=== PATIENT | female | born 1975 | race Caucasian/White ===

== ENCOUNTER 2021-03-29 05:00 | Inpatient (IN) | payer MEDICAID, SELFPAY ==
[~2021-03-29] VITALS: Ht 157.5 cm; Wt 76.7 kg
[2021-03-29 05:06] VITALS: BP 131/44
--- NOTE | 2021-03-29 05:45 | NUR ---
45 Y/O FEMALE CAME TO THE ED FOR PROCEDURE WITH DR. PANTOJA. PER PT, DR. ARAUJO STATED "I NEED TO BE HERE BEFORE 5AM". PT STATES THAT PROCEDURE IS FOR HER PAST ABNORMAL UTERINE BLEEDING. DENIES N/V/D; SKIN IS PINK/WARM/DRY; AAOX4 WITH EVEN AND STEADY GAIT; LUNGS CLEAR BL; HR EVEN AND REGULAR; PT DENIES ANY FEVER, CP, SOB, OR COUGH AT THIS TIME; PATIENT STATES PAIN OF 0/10 AT THIS TIME; VSS; PATIENT POSITIONED FOR COMFORT; HOB ELEVATED; BEDRAILS UP X2; BED DOWN. ER MD MADE AWARE OF PT STATUS. NKA PMH: BLOOD CLOTS
--- NOTE | 2021-03-29 05:47 | NUR ---
COLLECTED DARLING SWAB, HANDED TO LORI, CPT
--- NOTE | 2021-03-29 05:50 | NUR ---
ekg performed at bedside. ekg reads sinus rhythm @ 72
[2021-03-29 05:56] LABS: BASOPHILS % (AUTO) 0.4 % (0.0-2.0); EOSINOPHILS # (AUTO) 0.3 K/uL (0-0.4); EOSINOPHILS % (AUTO) 2.9 % (0.0-4.0); HEMATOCRIT 22.2 % (36-48); LYMPHOCYTES % (AUTO) 34.6 % (20.5-51.1); MEAN CORPUSCULAR HEMOGLOBIN 26 pg (27-31); MEAN CORPUSCULAR HGB CONC 32 g/dL (33-37); MEAN CORPUSCULAR VOLUME 81.1 fL (80-94); MONOCYTES # (AUTO) 0.8 K/uL (0.8-1.0); MONOCYTES % (AUTO) 9.1 % (1.7-9.3); NEUTROPHILS # (AUTO) 4.6 K/uL (1.8-7.7); PLATELET COUNT (AUTO) 469 K/uL (140-450); RED BLOOD CELL COUNT(AUTO) 2.74 MIL/uL (4.20-5.40); RED CELL DISTRIBUTION WIDTH 20.1 % (11.6-13.7); WHITE BLOOD COUNT (AUTO) 8.7 K/uL (4.8-10.8)
[2021-03-29 06:10] LABS: ALBUMIN 3.1 g/dL (3.4-5.0); ANION GAP 12.8 (8-16); CARBON DIOXIDE 22.9 mmol/L (21-32); CREATININE 0.6 mg/dL (0.6-1.3); POTASSIUM 3.7 mmol/L (3.5-5.1); TOTAL BILIRUBIN 0.3 mg/dL (0.0-1.0)
[2021-03-29] MEDS ORDERED: MEGE40TA17 PO (06:29)
[2021-03-29] MEDS ORDERED: RIVA20TA PO (06:29)
[2021-03-29] MEDS ORDERED: ONDANSETRON 4 MG/2 ML VIAL IM/IVP PRN (07:00)
[2021-03-29] MEDS: NACL 0.9% 1,000 ML IV SCH ×2 (07:00→23:40)
[2021-03-29] MEDS ORDERED: DOCUSATE SODIUM 100 MG GELCAP PO PRN (07:00)
[2021-03-29] MEDS ORDERED: ACETAMINOPHEN 325 MG TAB PO PRN (07:00)
--- NOTE | 2021-03-29 07:47 | NUR ---
REPORT GIVEN TO LANE JOSE AT THIS TIME.
--- NOTE | 2021-03-29 07:57 | NUR ---
Patient will be admitted to care of DR MIGUEL. Admited to MED SURG. Will go to room 119B. Belongings list completed. Report to LANE JOSE.
[2021-03-29] MEDS ORDERED: ONDANSETRON 4 MG/2 ML VIAL ONE ×2 (07:58→09:44)
[2021-03-29] MEDS ORDERED: LIDOCAINE 2% 100 MG/5 ML SYR IVP ONE ×2 (07:58→09:44)
[2021-03-29] MEDS ORDERED: METOCLOPRAMIDE 10 MG/2 ML INJ VIAL ONE ×2 (07:58→09:44)
[2021-03-29] MEDS ORDERED: DEXAMETHASONE 4 MG/ML VIAL ONE ×2 (07:58→09:44)
[2021-03-29] MEDS ORDERED: MIDAZOLAM 2 MG/2 ML VIAL ONE (07:58)
[2021-03-29] MEDS ORDERED: fentaNYL citrate 0.05 MG/ML VIAL ONE ×2 (07:58→09:44)
--- NOTE | 2021-03-29 08:00 | NUR ---
PT ARRIVED FROM ED DEPT. VIA WHEELCHAIR. A/OX4 [place] SPEAKING PT. RA. LUNGS CLEAR, ABD SOFT, TENDER. GUARDING. S1S2. SKIN INTACT, NORMAL FOR SKIN ETHNICITY. R. HAND 22G. PT CAN AMBULATE, STATES HAS PAIN 8/10 ON PELVIC REGION, NO UTERINE BLEEDING AT THIS TIME PER PT. WILL CONTINUE TO MONITOR. NO SIGN OF APPARENT DISTRESS. PT CAN MAKE NEEDS KNOWN.
--- NOTE | 2021-03-29 08:10 | NUR ---
OBTAINED L/R NARE SPECIMEN FOR MRSA, PT TOLERATED PROCEDURE WELL. SENT SPECIMEN TO LAB FOR PROCESSING
--- NOTE | 2021-03-29 09:20 | NUR ---
PT TAKEN TO O.R. FOR PROCEDURE, PER OR NURSE, PHYSICIAN CALLED IN FOR PROCEDURE AND ARRANGED HIMSELF. PT REMOVED TWO PAIR OF EARRINGS AND PLACE IN PURSE ALONG WITH CELLPHONE, I LEFT MESSAGE FOR TO NOTIFY OF PT TRANSFER TO OR.
[2021-03-29] MEDS ORDERED: ceFAZolin 1,000 MG VIAL ONE (09:31)
--- NOTE | 2021-03-29 09:40 | NUR ---
SPOKE TO RE: TRANSFER OF PT TO OR. HE WILL CALL AFTER 12:00PM TO CHECK ON PT STATUS
[2021-03-29] MEDS ORDERED: SUCCINYLCHOLINE CHLORIDE 200 MG/10 ML VIAL IVP ONE (09:44)
[2021-03-29] MEDS ORDERED: SEVOFLURANE 250 ML BTL INH ONE (09:44)
[2021-03-29] MEDS ORDERED: ROCURONIUM 50 MG/5 ML VIAL IV ONE (09:44)
[2021-03-29] MEDS ORDERED: PROPOFOL 200 MG/20 ML VIAL IV ONE (09:44)
[2021-03-29] MEDS ORDERED: ETOMIDATE 20 MG/10 ML VIAL IVP ONE (09:44)
[2021-03-29] MEDS: LACTATED RINGERS 1,000 ML IV SCH ×3 (10:15→23:47)
[2021-03-29] MEDS ORDERED: ONDANSETRON 4 MG/2 ML VIAL IVP PRN (10:15)
[2021-03-29] MEDS ORDERED: MEPERIDINE 25 MG/ML SYR IVP PRN (10:15)
[2021-03-29] MEDS ORDERED: diphenhydrAMINE 50 MG/ML VIAL IVP PRN (10:15)
[2021-03-29] MEDS: fentaNYL citrate 0.05 MG/ML VIAL IVP PRN ×2 (11:09→11:19)
--- NOTE | 2021-03-29 11:46 | NUR ---
PT RETURNED FROM OR. STABLE, NO SIGN OF DISTRESS, STATES PAIN 2/10, NO NEED TO MEDICATE PER PT. PT HAD HYSTEROSCOPY WITH D&C, UTERINE ABLATION. RA. WILL CONTINUE TO MONITOR VITALS. BED LOWEST POSITION.
--- NOTE | 2021-03-29 12:14 | NUR ---
DC PLANNIN YRS OLD FEMALE PATIENT WAS ADMITTED FROM HOME WITH A DX OF DYSFUNCTIONAL UTERINE BLEEDING, ANEMIA. PT HAS A HX OF MENORRHAGIA, DVT AND PE ON XARELTO. CXR SHOWED NO ACUTE CARDIOPULMONARY DISEASE. RAPID COVID TEST NEGATIVE. CONTINUOUS PILLOWCASE CUTTER DR MIGUEL PERFORMED HYSTEROSCOPY ,ENDOMETRIAL DILATION &CURETTAGE W ENDOMETRIAL ABLATION. ADMINISTERED IVF, IV ABX ANCEF AND CONTINUED HOME MEDS. DC PLAN TO GO HOME WHEN STABLE.
--- NOTE | 2021-03-29 13:30 | NUR ---
PT STABLE, DENIES ANY VAGINAL BLEEDING AT THIS TIME, STATES PAIN IS TOLERABLE
--- NOTE | 2021-03-29 14:45 | NUR ---
PT IV BECAME INFILTRATED, NO PATENT, REMOVE IV CATHETER, INTACT. REPLACED ON R. FOREARM 20 G, TWO ATTEMPTS WERE MADE ,PT TOLERATED PROCEDURE WELL
--- NOTE | 2021-03-29 15:34 | NUR ---
RECEIVED FNS REFERRAL FOR NAUSEA >3 DAYS. PATIENT HAS BEEN SCREENED AND CATEGORIZED HIGH NUTRITION RISK. PATIENT WILL BE SEEN WITHIN 1-2 DAYS OF ADMISSION. 03/29/21-03/30/[address]
[2021-03-29] MEDS ORDERED: HYDROcodone/APAP 5/325 MG 1 TAB TAB PO PRN (15:50)
[2021-03-29 16:00] VITALS: BP 107/55
--- NOTE | 2021-03-29 16:30 | NUR ---
PT STATES PAIN IS INCREASING, WILL MEDICATE ACCORDINGLY. DENIES VAGINAL BLEEDING AT THIS TIME
--- NOTE | 2021-03-29 19:20 | NUR ---
RECEIVED PATIENT A/A/OX4, SITTING UP IN BED. NOT IN ANY DISTRESS AND NO COMPLAIN AT THIS TIME. REVIEWED PLAN OF CARE WITH GLORIA WOODS AND BOTH AGREED. IVF INFUSING ORDERED.CALL LIGHT WITHIN REACH. WILL CONTINUE PLAN OF CARE.
--- NOTE | 2021-03-29 19:39 | NUR ---
ENDORSED PT TO [facility] SHIFT NURSE, PT STABLE, NO SIGN OF DISTRESS.
--- NOTE | 2021-03-29 19:40 | NUR ---
RECD. RESTING IN BED, AWAKE, A/OX4. RESPIRATION EVEN AND UNLABORED. IV OF NS AT 60 ML/HR INFUSING, RIGHT FOREARM G22. AMBULATORY TO THE BR. DENIES VAGINAL BLEEDING, VERBALIZED SHE HAVE ONLY VERY SMALL AMOUNT BLOOD IN HER PAD. DENIES PAIN 0/10.
[2021-03-29 20:00] VITALS: BP 109/54
--- NOTE | 2021-03-29 20:00 | NUR ---
HAT GIVEN TO COLLECT URINE FOR URINALYSIS. VERBALIZED UNDERSTANDING.
--- NOTE | 2021-03-29 22:00 | NUR ---
WATCHING TV. DENIES PAIN 0/10. SNACK OF JUICE AND CRACKERS GIVEN.
--- NOTE | 2021-03-30 | NUR ---
SLEEPING COMFORTABLY IN BED.
--- NOTE | 2021-03-30 02:00 | NUR ---
AMBULATED TO BR TO VOID, BACK TO BED AND WENT BACK TO SLEEP.
[2021-03-30 04:00] VITALS: BP 94/54
--- NOTE | 2021-03-30 04:00 | NUR ---
NO COMPLAINT OF ABDOMINAL PAIN 0/10. VS STABLE.
--- NOTE | 2021-03-30 05:45 | NUR ---
BROUGHT SPECIMEN FOR URINALYSIS TO THE LAB.
[2021-03-30 05:56] LABS: PHOSPHORUS 2.5 mg/dL (2.5-4.9)
[2021-03-30 06:04] LABS: BILIRUBIN,URINE NEGATIVE (NEGATIVE); COLOR,URINE YELLOW (YELLOW); LEUKOCYTE ESTERASE ,URINE TRACE (NEGATIVE); NITRITE, URINE NEGATIVE (NEGATIVE); UGLUCOSE NEGATIVE (NEGATIVE)
[2021-03-30] MEDS: NACL 0.9% 1,000 ML IV SCH ×2 (06:08→16:20)
[2021-03-30] MEDS: LACTATED RINGERS 1,000 ML IV SCH (06:27)
[2021-03-30 06:46] LABS: APPEARANCE,URINE CLEAR (CLEAR)
[2021-03-30 06:47] LABS: BLOOD, URINE 1+ (NEGATIVE); RBC,URINE 0-5 /HPF (0-5); WBC,URINE 0-5 /HPF (0-5)
--- NOTE | 2021-03-30 07:05 | NUR ---
NO COMPLAINT OF PAIN DURING THE SHIFT. CONDITION REMAIN STABLE. ENDORSED TO AM SHIFT NURSE FOR CONTINUITY OF CARE.
--- NOTE | 2021-03-30 07:10 | NUR ---
RECEIVED PATIENT FROM NIGHT NURSE. PATIENT IN BED AWAKE AND ALERT. RESP EVEN AND UNLABORED ON ROOM AIR. DENIED OF PAIN AT THIS TIME. RFA 22G INFUSING NS 60ML/HR. PLAN OF CARE DISCUSSED, PATIENT VERBALIZED UNDERSTANDING. HOB ELEVATED, SAFETY MEASURES IN PLACE. WILL CONTINUE TO MONITOR.
[2021-03-30 08:00] VITALS: BP 146/78
[2021-03-30] MEDS ORDERED: RIVAROXABAN 10 MG TAB PO SCH ×2 (09:00→21:00)
--- NOTE | 2021-03-30 09:35 | NUR ---
PATIENT SITTING UP IN BED AWAKE AND ALERT, ORIENTED X4. ATE BREAKFAST AND TOLERATED WELL. RESP EVEN AND UNLABORED ON ROOM AIR. DENIED OF PAIN AT THIS TIME. NO BLEEDING REPORTED. NO NOTED DISTRESS AT THIS TIME. PATIENT ABLE TO AMBULATE WITH STEADY GAIT TO THE BATHROOM. PLAN OF CARE DISCUSSED. PATIENT VERBALIZED UNDERSTANDING. CALL LIGHT WITHIN REACH. WILL CONTINUE TO MONITOR.
--- NOTE | 2021-03-30 11:25 | NUR ---
PATIENT IN BED AWAKE WATCHING TV. NO NOTED DISTRESS. CALL LIGHT WITHIN REACH. WILL CONTINUE TO MONITOR.
[2021-03-30 12:03] LABS: BASOPHILS % (AUTO) 0.3 % (0.0-2.0); HEMATOCRIT 22.7 % (36-48); LYMPHOCYTES # (AUTO) 2.6 K/uL (2.5-16.5); LYMPHOCYTES % (AUTO) 25.8 % (20.5-51.1); MEAN CORPUSCULAR HEMOGLOBIN 25 pg (27-31); MEAN CORPUSCULAR HGB CONC 30 g/dL (33-37); MEAN CORPUSCULAR VOLUME 82.5 fL (80-94); MONOCYTES # (AUTO) 0.9 K/uL (0.8-1.0); MONOCYTES % (AUTO) 8.9 % (1.7-9.3); NEUTROPHILS # (AUTO) 6.6 K/uL (1.8-7.7); PLATELET COUNT (AUTO) 451 K/uL (140-450); RED BLOOD CELL COUNT(AUTO) 2.75 MIL/uL (4.20-5.40); WHITE BLOOD COUNT (AUTO) 10.2 K/uL (4.8-10.8)
[2021-03-30 12:06] LABS: HEMOGLOBIN 6.9 g/dL (12.0-16.0)
--- NOTE | 2021-03-30 12:57 | NUR ---
SOCIAL WORK NOTE: Patient's Orientation Unable To Assess Information Provided By CHRISTINE STALLINGS - SIGNIFICANT OTHER Comments SW WAS UNABLE TO MEET PATIENT AT BEDSIDE. SW COMPLETED ASSESSMENT WITH PATEINT'S SIGNIFICANT OTHER. Diesel Lube Tech, Realtionship and Phone Number CHRISTINE STALLINGS SIGNIFICANT OTHER [phone] [facility] Power of Product Support Consultant No Does Patient Have a POLST No Identifying Problems No Social Work Triggers Is A Social Work Consult Needed No Mandate Report Filed No Explanation Of Identifying Problems PATIENT IS A 45-YEAR-OLD FEMALE ADMITTED FOR DYSFUNCTIONAL UTERINE BLEED. PATIENT HAS NO REPORTED PMHX. Admitted From Home Pre-Admission Level Of Functioning Status Independent/Ambulatory Prior Resources/Services Used In Last 12 Months No Prior Resources Used Prior DME No Prior DME Used Dialysis Comments N/A Living Situation Lives With Family House Patient Had Caregiver No Home Support No Caregiver Issues Financial Issues No Known Financial Issue Referral To The Financial Counselor Needed No Factors/Needs No D/C Needs Identified Pt/Rep Participated In Discharge Plan Yes Patient/Family Agress With Discharge Plan Yes Discharge Plan Comments TENTATIVE DISCHARGE PLAN IS FOR PATIENT TO RETURN HOME. DC Plan Status Initiated
--- NOTE | 2021-03-30 13:37 | NUR ---
PATIENT IN BED TALKING TO FAMILY. RESP EVEN AND UNLABORED ON ROOM AIR. DENIED OF PAIN AT THIS TIME. NEEDS ARE MET. CALL LIGHT WITHIN REACH. WILL CONTINUE TO MONITOR. Addendum: 03/30/21 at 1438 by Dre Chowdhury RN DR MIGUEL MADE AWARE OF H/H 6.9/22.7, WILL SEE PATIENT FOR ORDERS.
--- NOTE | 2021-03-30 15:00 | NUR ---
03/30/21 RD INITIAL ASSESSMENT COMPLETED PLEASE REFER TO NUTRITION ASSESSMENT UNDER CARE ACTIVITY FOR ESTIMATED NUTRITIONAL NEEDS. 1. CONTINUE REGULAR DIET TOLERATED 2. RD TO FOLLOW-UP 5-7 DAYS,LOW RISK AURA MANRIQUEZ RD
[2021-03-30 16:00] VITALS: BP 119/64
--- NOTE | 2021-03-30 16:07 | NUR ---
PATIENT IN BED AWAKE AND ALERT USING CELL PHONE. NO NOTED DISTRESS. ABLE TO MAKE NEEDS KNOWN. AWAITING FOR DR MIGUEL TO SEE PATIENT. WILL CONTINUE TO MONITOR.
--- NOTE | 2021-03-30 18:20 | NUR ---
CALLED BLOOD BANK. PACKED CELL NOT READY. WILL NOTIFY NURSING STAFF WHEN IT'S READY. WILL ENDORSE TO NIGHT NURSE.
--- NOTE | 2021-03-30 19:15 | NUR ---
ENDORSED PATIENT TO NIGHT NURSE. PATIENT IN STABLE CONDITION.
[2021-03-30 19:46] LABS: PROTHROMBIN TIME 9.6 secs (10.8-13.4)
[2021-03-30 20:00] VITALS: BP_SYST 105; BP_DIAS 19; BP_DIAS 49
--- NOTE | 2021-03-30 20:00 | NUR ---
RECEIVED BEDSIDE REPORT FROM DAY RN REGARDING THE PT FOR CONTINUITY OF CARE. PATIENT A/A/OX4, AMBULATORY. PT LAYING IN BED TALKING TO HIS FAMILY OVER THE PHONE. PT NOT IN ANY DISTRESS AND NO COMPLAIN AT THIS TIME. IVF INFUSING ORDERED. VITAL SIGNS STABLE, SBP ON THE 90'S, AFEBRILE, SATING 100% ON RA. SR WITH BBB ON RADIO FREQUENCY TECHNICIAN, HR-79. PT ASYMPTOMATIC. DENIES DIZZINESS AND LIGHT HEADEDNESS. PATIENT NEEDED A BLOOD TRANSFUSION. PT AWARE AND CONSENT OBTAINED AND VERIFIED. FALL PRECAUTION IMPLEMENTED. INSTRUCTED THE PT NOT TO GET OUT OF [place] ON HIS OWN AND EDUCATED ON HOW TO USE THE CALL LIGHT. BED IN LOW POSITION & SIDE RAILS UP X2 . PT VERBALIZED UNDERSTANDING WITH THE PLAN OF CARE.CALL LIGHT WITHIN REACH. WILL CONTINUE MONITORING AND POC.
--- NOTE | 2021-03-30 22:45 | NUR ---
STARTED THE BLOOD TRANSFUSION ORDERED. INSTRUCTED THE PT TO CALL THE RN IF SHE FEELS ANY BLOOD TRANSFUSION REACTIONS LIKE FEVER, CHILLS AND ITCHING. PT VERBALIZED UNDERSTANDING. WILL CONTINUE TO OBSERVE THE PT.
--- NOTE | 2021-03-30 23:25 | NUR ---
NO TRANSFUSION REACTION NOTED AFTER 1 HOUR OF TRANSFUSING THE BLOOD. NO COMPLAIN FROM THE PT. VITAL SIGNS STABLE, AFEBRILE, SATING 98 % ON RA. CALL LIGHT WITHIN REACH. WILL CONTINUE TO OBSERVE.
[2021-03-31] VITALS: BP 103/61
--- NOTE | 2021-03-31 01:50 | NUR ---
BLOOD TRANSFUSION DONE ORDERED. ONLY 1 UNIT TO TRANSFUSE PER DR BERRIOS PROGRESS NOTES. NO TRANSFUSION REACTION NOTED. NO COMPLAIN FROM THE PT. CALL LIGHT WITHIN REACH.
[2021-03-31] MEDS: NACL 0.9% 1,000 ML IV SCH (03:13)
--- NOTE | 2021-03-31 03:55 | NUR ---
PATIENT ASLEEP AT THIS TIME. SYMMETRICAL CHEST RISE AND FALL NOTED. SAFETY MEASURES IN PLACED.
[2021-03-31 04:00] VITALS: BP 108/42
--- NOTE | 2021-03-31 04:30 | NUR ---
PATIENT VSS, AFEBRILE, SATING 100% ON RA. NO COMPLAIN OF PAIN AT THIS TIME. WILL CONTINUE TO OBSERVE.
[2021-03-31 06:22] LABS: BASOPHILS % (AUTO) 0.3 % (0.0-2.0); EOSINOPHILS # (AUTO) 0.2 K/uL (0-0.4); EOSINOPHILS % (AUTO) 1.5 % (0.0-4.0); HEMATOCRIT 26.9 % (36-48); HEMOGLOBIN 8.7 g/dL (12.0-16.0); LYMPHOCYTES # (AUTO) 4.8 K/uL (2.5-16.5); LYMPHOCYTES % (AUTO) 43.2 % (20.5-51.1); MEAN CORPUSCULAR HEMOGLOBIN 27 pg (27-31); MEAN CORPUSCULAR HGB CONC 32 g/dL (33-37); MEAN CORPUSCULAR VOLUME 82.2 fL (80-94); MONOCYTES # (AUTO) 0.8 K/uL (0.8-1.0); MONOCYTES % (AUTO) 7.1 % (1.7-9.3); NEUTROPHILS # (AUTO) 5.4 K/uL (1.8-7.7); NEUTROPHILS % (AUTO) 47.9 % (42.2-75.2); PLATELET COUNT (AUTO) 435 K/uL (140-450); RED BLOOD CELL COUNT(AUTO) 3.27 MIL/uL (4.20-5.40); RED CELL DISTRIBUTION WIDTH 20.4 % (11.6-13.7); WHITE BLOOD COUNT (AUTO) 11.2 K/uL (4.8-10.8)
--- NOTE | 2021-03-31 06:58 | NUR ---
PATIENT STABLE AT THIS TIME. NOT IN ANY DISTRESS. NO COMPLAIN AT THIS TIME. ALL NEEDS ATTENDED. CALL LIGHT WITHIN REACH. WILL ENDORSE THE PATIENT TO THE ONCOMING RN FOR CONTINUITY OF CARE.
--- NOTE | 2021-03-31 07:36 | NUR ---
PATIENT STABLE. ENDORSED PATIENT TO DAY LANE ZAMARRIPA FOR CONTINUITY OF CARE. SIGNING OFF.
[2021-03-31 08:00] VITALS: BP 104/59
--- NOTE | 2021-03-31 08:10 | NUR ---
PATIENT IS AOX4, RESPIRATIONS EVEN AND UNLABORED ON ROOM AIR. VITAL SIGNS STABLE. DENIES PAIN AT THIS TIME. PATIENT REPORTS VERY SLIGHT VAGINAL BLEEDING LAST EPISODE WAS LAST NIGHT. DR. MIGUEL IS AWARE. TOLERATING DIET WELL WITH NO NAUSEA/VOMITING. AMBULATING INDEPENDENTLY IN ROOM. UPDATED PATIENT ON PLAN OF CARE. WILL CONTINUE TO MONITOR.
--- NOTE | 2021-03-31 10:00 | NUR ---
SPOKE TO DR. MIGUEL. PATIENT OK TO DISCHARGE WITH FOLLOW UP IN ONE WEEK.
[2021-03-31 10:15] VITALS: BP 104/59
[2021-03-31] MEDS ORDERED: DOCU-299 PO (10:50)
[2021-03-31] MEDS ORDERED: CALC-1200 PO (10:51)
[2021-03-31] MEDS ORDERED: FERR-212 PO (10:54)
--- NOTE | 2021-03-31 11:28 | NUR ---
DISCHARGE INSTRUCTIONS GIVEN TO PATIENT USING LACQUER PIN PRESS OPERATOR DILEEP #[id number]. PATIENT VERBALIZED UNDERSTANDING OF DISCHARGE MEDICATIONS, FOLLOWUP AND SIGN/SYMPTOMS TO REPORT. WILL BE PICKED UP BY FAMILY MEMBER.
--- NOTE | 2021-03-31 11:50 | NUR ---
ESCORTED PATIENT TO LOBBY, PICKED UP BY .
== END 2021-03-31 11:50 | disposition home or self-care (01) | DRG 513 ==
LOC: MED 05:00 → MTU 06:43
PROVIDERS: ADMIT Obstetrics & Gynecology; ATTEND Obstetrics & Gynecology
PROC: 0U5B8ZZ Destruction of Endometrium, Via Natural or Artificial Opening Endoscopic (ICD-10-PCS; principal; 2021-03-29 09:00)
PROC: 0UDB8ZZ Extraction of Endometrium, Via Natural or Artificial Opening Endoscopic (ICD-10-PCS; 2021-03-29 09:00)
PROC: 30233N1 Transfusion of Nonautologous Red Blood Cells into Peripheral Vein, Percutaneous Approach (ICD-10-PCS; 2021-03-30)
DX: N93.9 Abnormal uterine and vaginal bleeding, unspecified (principal); N92.0 Excessive and frequent menstruation with regular cycle; Z20.822 Contact with and (suspected) exposure to COVID-19; Z86.711 Personal history of pulmonary embolism; Z86.718 Personal history of other venous thrombosis and embolism; Z98.51 Tubal ligation status; Z90.49 Acquired absence of other specified parts of digestive tract; Z86.16 Personal history of COVID-19; Z80.42 Family history of malignant neoplasm of prostate
CPT/HCPCS: 36415; 71045; 80053; 81001; 83735; 84100; 85025; 85610; 85730; 86886; 86900; 86901; 86920; 87081; 88305; 93005; 99285; J0330; J0690; J1100; J2001; J2250; J2405; J2704; J2765; J3010; J3490; J7120; P9016